=== PATIENT | female | born 1935 | race Caucasian/White ===

== ENCOUNTER 2020-01-19 22:53 | Inpatient (IN) ==
[2020-01-19] MEDS ORDERED: Azithromycin 500 MG in 0.9 % Sodium Chloride 250 ML IVPB ONE (23:16)
[2020-01-19] MEDS ORDERED: cefTRIAXone 1,000 MG in Water for inj. (sterile) 10 ML IVP ONE (23:16)
[2020-01-19] MEDS ORDERED: Isovue-370 500 ML BOTTLE IVP ONE (23:16)
[2020-01-19 23:28] LABS: Basophils % 0.2 %; Hematocrit 37.2 % (35.3-44.9); Hemoglobin 12.2 g/dL (11.5-15.4); Lymphocytes # 0.5 K/mcL (0.6-4.6); Lymphocytes % 2.5 %; Mean Corpuscular HGB Conc 32.8 g/dL (31.6-35.5); Mean Corpuscular Hemoglobin 27.4 pg (28.0-33.3); Mean Corpuscular Volume 83.6 fL (83.0-100.0); Mean Platelet Volume 10.2 fL (9.4-12.4); Monocytes # 0.5 K/mcL (0.0-1.3); Monocytes % 2.9 %; Neutrophils # 17.1 K/mcL (1.6-8.9); Platelet Count 249 K/mcL (140-400); Red Blood Count 4.45 M/mcL (3.82-4.97); Segmented Neutrophils % 93.4 %; White Blood Count 18.3 K/mcL (4.3-11.1)
[2020-01-19 23:38] LABS: INR 1.2
[2020-01-19 23:41] LABS: Activated Partial Thrombo Time 29.8 Seconds (26.0-36.0)
[2020-01-19 23:53] LABS: Albumin 3.5 g/dL (3.5-5.7); Albumin/Globulin Ratio 1.1 (1.1-2.2); Bilirubin,Direct 0.2 mg/dL (0.0-0.2); Bilirubin,Indirect 0.6 mg/dL (0.0-1.0); Bilirubin,Total 0.8 mg/dL (0.3-1.0); Calcium 9.4 mg/dL (8.6-10.3); Globulin 3.2 g/dL (2.4-3.5); Potassium 3.5 mEq/L (3.5-5.1); Total Protein 6.7 g/dL (6.4-8.9); Troponin I 0.03 ng/mL (< 0.04)
[2020-01-20] MEDS ORDERED: 0.9 % Sodium Chloride 1,000 ML IVC ONE (00:20)
[2020-01-20] MEDS ORDERED: Isovue-370 500 ML BOTTLE IVP ONE (00:42)
[2020-01-20 01:13] LABS: Adenovirus Not Detected (Not Detect); Coronavirus 229E Not Detected (Not Detect); Coronavirus HKU1 Not Detected (Not Detect); Coronavirus NL63 Not Detected (Not Detect); Coronavirus OC43 Not Detected (Not Detect)
[2020-01-20 01:14] LABS: Bordetella Pertussis Not Detected (Not Detect); Chlamydophila pneumoniae Not Detected (Not Detect); Human Metapneumovirus Not Detected (Not Detect); Human Rhinovirus/Enterovirus Not Detected (Not Detect); Influenza A Subtype 2009 H1 Not Detected (Not Detect); Influenza B Not Detected (Not Detect); Mycoplasma pneumoniae Not Detected (Not Detect); Parainfluenza Virus 1 Not Detected (Not Detect); Parainfluenza Virus 2 Not Detected (Not Detect); Parainfluenza Virus 3 Not Detected (Not Detect); Parainfluenza Virus 4 Not Detected (Not Detect); Respiratory Syncytial Virus Not Detected (Not Detect)
[2020-01-20] MEDS ORDERED: Naloxone 0.4 MG/ML INJ IVP PRN (03:11)
[2020-01-20] MEDS ORDERED: D5% in Water 1,000 ML IVC PRN (04:41)
[2020-01-20] MEDS ORDERED: *HR* Dextrose 50 % in Water (Vial) 50 ML VIAL IVP PRN (04:41)
[2020-01-20] MEDS ORDERED: Dextrose Gel 15 GM/37.5 ML TUBE PO PRN ×2 (04:41)
[2020-01-20] MEDS ORDERED: Acetaminophen 325 MG TABLET PO PRN (05:07)
[2020-01-20] MEDS ORDERED: *HR* Promethazine 25 MG/ML VIAL IVP PRN (05:07)
[2020-01-20] MEDS: *HR* Heparin 5,000 UNIT/ML VIAL SQ SCH ×3 (05:48→21:13)
[2020-01-20] MEDS: cefTRIAXone 1,000 MG in Water for inj. (sterile) 10 ML IVP SCH (07:57)
[2020-01-20] MEDS: Dexamethasone 4 MG/ML VIAL IVP SCH (07:57)
[2020-01-20] MEDS: Insulin LISPRO 300 UNITS/3 ML VIAL SQ SCH ×3 (07:58→15:42)
[2020-01-20 08:50] LABS: Basophils % 0.1 %; Hematocrit 36.1 % (35.3-44.9); Hemoglobin 11.5 g/dL (11.5-15.4); Immature Granulocytes % 0.9 % (0-4); Lymphocytes # 0.6 K/mcL (0.6-4.6); Lymphocytes % 4.2 %; Mean Corpuscular HGB Conc 31.9 g/dL (31.6-35.5); Mean Corpuscular Hemoglobin 27.3 pg (28.0-33.3); Mean Corpuscular Volume 85.5 fL (83.0-100.0); Mean Platelet Volume 10.1 fL (9.4-12.4); Monocytes # 0.4 K/mcL (0.0-1.3); Monocytes % 2.5 %; Neutrophils # 12.9 K/mcL (1.6-8.9); Platelet Count 240 K/mcL (140-400); Red Blood Count 4.22 M/mcL (3.82-4.97); Red Cell Distribution Width 13.2 % (11.5-14.5); Segmented Neutrophils % 92.3 %
[2020-01-20 09:10] LABS: Albumin 3.3 g/dL (3.5-5.7); Albumin/Globulin Ratio 1.1 (1.1-2.2); Bilirubin,Total 0.5 mg/dL (0.3-1.0); Calcium 9.1 mg/dL (8.6-10.3); Globulin 3.1 g/dL (2.4-3.5); Magnesium 1.5 mg/dL (1.6-2.6); Phosphorous 3.1 mg/dL (2.7-4.5); Potassium 3.3 mEq/L (3.5-5.1); Total Protein 6.4 g/dL (6.4-8.9)
[2020-01-20] MEDS ORDERED: Furosemide 20 MG/2 ML VIAL IVP ONE (10:30)
[2020-01-20] MEDS: Azithromycin 500 MG in 0.9 % Sodium Chloride 250 ML IVPB SCH (17:49)
[2020-01-20] MEDS ORDERED: Insulin LISPRO 300 UNITS/3 ML VIAL SQ SCH (21:00)
[2020-01-21] MEDS: *HR* Heparin 5,000 UNIT/ML VIAL SQ SCH ×3 (05:09→21:02)
[2020-01-21 05:52] LABS: Basophils # 0.1 K/mcL (0.0-0.2); Basophils % 0.2 %; Hematocrit 36.4 % (35.3-44.9); Hemoglobin 11.9 g/dL (11.5-15.4); Immature Granulocytes % 1.5 % (0-4); Lymphocytes # 0.6 K/mcL (0.6-4.6); Lymphocytes % 2.6 %; Mean Corpuscular HGB Conc 32.7 g/dL (31.6-35.5); Mean Corpuscular Hemoglobin 28.2 pg (28.0-33.3); Mean Corpuscular Volume 86.3 fL (83.0-100.0); Mean Platelet Volume 10.5 fL (9.4-12.4); Monocytes # 0.6 K/mcL (0.0-1.3); Monocytes % 2.5 %; Platelet Count 301 K/mcL (140-400); Red Blood Count 4.22 M/mcL (3.82-4.97); Red Cell Distribution Width 13.3 % (11.5-14.5); Segmented Neutrophils % 93.2 %; White Blood Count 22.5 K/mcL (4.3-11.1)
[2020-01-21 06:02] LABS: D-Dimer 1115 ng/mLFEU (0-500)
[2020-01-21 06:03] LABS: Fibrinogen 948 mg/dL (169-393)
[2020-01-21 06:06] LABS: Calcium 9.6 mg/dL (8.6-10.3); Potassium 4.2 mEq/L (3.5-5.1)
[2020-01-21] MEDS: Dexamethasone 4 MG/ML VIAL IVP SCH (08:37)
[2020-01-21] MEDS: Insulin LISPRO 300 UNITS/3 ML VIAL SQ SCH ×4 (08:38→21:01)
[2020-01-21] MEDS: cefTRIAXone 1,000 MG in Water for inj. (sterile) 10 ML IVP SCH (08:40)
[2020-01-21] MEDS ORDERED: Furosemide 40 MG/4 ML VIAL IVP ONE (12:18)
[2020-01-21] MEDS: Piperacillin/Tazobactam 3.375 GM in 0.9 % Sodium Chloride Mini Bag 100 ML IVPB SCH (13:10)
[2020-01-21] MEDS: Azithromycin 500 MG in 0.9 % Sodium Chloride 250 ML IVPB SCH (17:38)
[2020-01-21] MEDS: Insulin DETEMIR 100 UNIT/ML X5UNITS SQ SCH (17:41)
[2020-01-21 18:57] LABS: ABG Base Excess -6 mEq/L (-2 to 3); ABG HCO3 19 mEq/L (21-27); ABG Oxygen Saturation 85 % (95-98); ABG PCO2 36 mmHg (35-45); ABG PH 7.34 pH Units (7.32-7.45); ABG PO2 52 mmHg (85-104); ABG TCO2 20 mEq/L (20-26)
[2020-01-21] MEDS ORDERED: Gabapentin 400 MG CAPSULE PO SCH (21:00)
[2020-01-21] MEDS ORDERED: Insulin DETEMIR 100 UNIT/ML X5UNITS SQ SCH (21:00)
[2020-01-22 01:31] LABS: Basophils # 0.1 K/mcL (0.0-0.2); Basophils % 0.5 %; Hematocrit 35.1 % (35.3-44.9); Hemoglobin 11.2 g/dL (11.5-15.4); Immature Granulocytes % 3.6 % (0-4); Lymphocytes # 0.7 K/mcL (0.6-4.6); Lymphocytes % 3.4 %; Mean Corpuscular HGB Conc 31.9 g/dL (31.6-35.5); Mean Corpuscular Hemoglobin 27.3 pg (28.0-33.3); Mean Corpuscular Volume 85.4 fL (83.0-100.0); Mean Platelet Volume 10.4 fL (9.4-12.4); Monocytes # 1.1 K/mcL (0.0-1.3); Monocytes % 5.2 %; Neutrophils # 18.7 K/mcL (1.6-8.9); Platelet Count 361 K/mcL (140-400); Red Blood Count 4.11 M/mcL (3.82-4.97); Red Cell Distribution Width 13.2 % (11.5-14.5); Segmented Neutrophils % 87.3 %; White Blood Count 21.4 K/mcL (4.3-11.1)
[2020-01-22 01:38] LABS: D-Dimer 988 ng/mLFEU (0-500)
[2020-01-22 01:40] LABS: Fibrinogen 816 mg/dL (169-393)
[2020-01-22 01:51] LABS: Albumin 3.2 g/dL (3.5-5.7); Bilirubin,Indirect 0.3 mg/dL (0.0-1.0); Bilirubin,Total 0.3 mg/dL (0.3-1.0); Calcium 9.3 mg/dL (8.6-10.3); Globulin 3.2 g/dL (2.4-3.5); Potassium 4.1 mEq/L (3.5-5.1); Total Protein 6.4 g/dL (6.4-8.9)
[2020-01-22] MEDS: Piperacillin/Tazobactam 3.375 GM in 0.9 % Sodium Chloride Mini Bag 100 ML IVPB SCH ×4 (04:35→23:49)
[2020-01-22] MEDS: *HR* Heparin 5,000 UNIT/ML VIAL SQ SCH ×3 (04:36→21:10)
[2020-01-22 07:54] LABS: ABG Base Excess -2 mEq/L (-2 to 3); ABG HCO3 24 mEq/L (21-27); ABG Oxygen Saturation 94 % (95-98); ABG PCO2 44 mmHg (35-45); ABG PH 7.35 pH Units (7.32-7.45); ABG PO2 74 mmHg (85-104); ABG TCO2 26 mEq/L (20-26)
[2020-01-22] MEDS ORDERED: 0.9 % Sodium Chloride 1,000 ML IVC SCH (08:15)
[2020-01-22] MEDS: Cholecalciferol (D-3) 1,000 UNIT (25MCG) TABLET PO SCH (08:37)
[2020-01-22] MEDS: Insulin LISPRO 300 UNITS/3 ML VIAL SQ SCH ×4 (08:38→21:08)
[2020-01-22] MEDS: Aspirin Enteric Coated 81 MG Tablet PO SCH (08:38)
[2020-01-22] MEDS: Dexamethasone 4 MG/ML VIAL IVP SCH (08:46)
[2020-01-22] MEDS ORDERED: atenoloL 50 MG TABLET PO SCH (09:00)
[2020-01-22] MEDS ORDERED: amLODIPine 5 MG TABLET PO SCH (09:00)
[2020-01-22] MEDS ORDERED: Gabapentin 100 MG CAPSULE PO SCH (21:00)
[2020-01-22] MEDS: Insulin DETEMIR 100 UNIT/ML X5UNITS SQ SCH (21:09)
[2020-01-23 02:30] LABS: Hematocrit 36.9 % (35.3-44.9); Hemoglobin 12.1 g/dL (11.5-15.4); Mean Corpuscular HGB Conc 32.8 g/dL (31.6-35.5); Mean Corpuscular Hemoglobin 28.3 pg (28.0-33.3); Mean Corpuscular Volume 86.2 fL (83.0-100.0); Mean Platelet Volume 9.9 fL (9.4-12.4); Platelet Count 368 K/mcL (140-400); Red Blood Count 4.28 M/mcL (3.82-4.97); Red Cell Distribution Width 13.1 % (11.5-14.5); White Blood Count 17.5 K/mcL (4.3-11.1)
[2020-01-23 02:37] LABS: Fibrinogen 693 mg/dL (169-393)
[2020-01-23 02:39] LABS: D-Dimer 1444 ng/mLFEU (0-500)
[2020-01-23 02:52] LABS: Calcium 9.8 mg/dL (8.6-10.3); Potassium 4.4 mEq/L (3.5-5.1)
[2020-01-23 03:12] LABS: Lymphocytes # 0.4 K/mcL (0.6-4.6); Monocytes # 0.4 K/mcL (0.0-1.3); Neutrophils # 16.5 K/mcL (1.6-8.9); Platelet Estimate Normal (Normal)
[2020-01-23] MEDS: *HR* Heparin 5,000 UNIT/ML VIAL SQ SCH ×3 (06:11→20:35)
[2020-01-23] MEDS: Dexamethasone 4 MG/ML VIAL IVP SCH (08:51)
[2020-01-23] MEDS: Aspirin Enteric Coated 81 MG Tablet PO SCH (08:51)
[2020-01-23] MEDS: Cholecalciferol (D-3) 1,000 UNIT (25MCG) TABLET PO SCH (08:51)
[2020-01-23] MEDS: Piperacillin/Tazobactam 3.375 GM in 0.9 % Sodium Chloride Mini Bag 100 ML IVPB SCH ×2 (08:52→16:34)
[2020-01-23] MEDS: Insulin LISPRO 300 UNITS/3 ML VIAL SQ SCH ×4 (08:53→20:33)
[2020-01-23] MEDS: Insulin DETEMIR 100 UNIT/ML X5UNITS SQ SCH (20:34)
[2020-01-24] MEDS: Piperacillin/Tazobactam 3.375 GM in 0.9 % Sodium Chloride Mini Bag 100 ML IVPB SCH ×4 (00:01→20:38)
[2020-01-24 02:47] LABS: Hematocrit 37.4 % (35.3-44.9); Mean Corpuscular HGB Conc 32.1 g/dL (31.6-35.5); Mean Corpuscular Hemoglobin 27.6 pg (28.0-33.3); Mean Platelet Volume 10.2 fL (9.4-12.4); Platelet Count 382 K/mcL (140-400); Red Blood Count 4.35 M/mcL (3.82-4.97); Red Cell Distribution Width 13.1 % (11.5-14.5); White Blood Count 17.2 K/mcL (4.3-11.1)
[2020-01-24 03:05] LABS: Albumin 3.1 g/dL (3.5-5.7); Bilirubin,Direct 0.1 mg/dL (0.0-0.2); Bilirubin,Indirect 0.3 mg/dL (0.0-1.0); Bilirubin,Total 0.4 mg/dL (0.3-1.0); Calcium 9.7 mg/dL (8.6-10.3); Globulin 3.2 g/dL (2.4-3.5); Potassium 3.9 mEq/L (3.5-5.1); Total Protein 6.3 g/dL (6.4-8.9)
[2020-01-24 03:14] LABS: Monocytes # 0.3 K/mcL (0.0-1.3); Neutrophils # 15.8 K/mcL (1.6-8.9); Smudge Cells Present (Not Present)
[2020-01-24 03:15] LABS: Platelet Estimate Normal (Normal)
[2020-01-24] MEDS: *HR* Heparin 5,000 UNIT/ML VIAL SQ SCH ×3 (05:31→20:14)
[2020-01-24] MEDS: Cholecalciferol (D-3) 1,000 UNIT (25MCG) TABLET PO SCH (08:51)
[2020-01-24] MEDS: Dexamethasone 4 MG/ML VIAL IVP SCH (08:51)
[2020-01-24] MEDS: Aspirin Enteric Coated 81 MG Tablet PO SCH (08:51)
[2020-01-24] MEDS: Insulin LISPRO 300 UNITS/3 ML VIAL SQ SCH ×6 (08:52→20:08)
[2020-01-24] MEDS: Insulin DETEMIR 100 UNIT/ML X5UNITS SQ SCH ×2 (11:39→20:08)
[2020-01-24] MEDS: amLODIPine 5 MG TABLET PO SCH (11:41)
[2020-01-24] MEDS ORDERED: Remdesivir 200 MG in 0.9 % Sodium Chloride 210 ML IVPB ONE (17:00)
[2020-01-25] MEDS ORDERED: 0.9 % Sodium Chloride 250 ML ONE ×2 (00:37→16:06)
[2020-01-25] MEDS: Piperacillin/Tazobactam 3.375 GM in 0.9 % Sodium Chloride Mini Bag 100 ML IVPB SCH ×3 (05:07→20:18)
[2020-01-25] MEDS: *HR* Heparin 5,000 UNIT/ML VIAL SQ SCH ×3 (05:08→20:17)
[2020-01-25] MEDS: Insulin LISPRO 300 UNITS/3 ML VIAL SQ SCH ×4 (08:11→20:51)
[2020-01-25] MEDS: Insulin DETEMIR 100 UNIT/ML X5UNITS SQ SCH ×2 (08:20→13:00)
[2020-01-25] MEDS: Dexamethasone 4 MG/ML VIAL IVP SCH (08:22)
[2020-01-25] MEDS: Aspirin Enteric Coated 81 MG Tablet PO SCH (08:23)
[2020-01-25] MEDS: amLODIPine 5 MG TABLET PO SCH (08:23)
[2020-01-25] MEDS: Cholecalciferol (D-3) 1,000 UNIT (25MCG) TABLET PO SCH (08:23)
[2020-01-25 09:48] LABS: Hematocrit 37.5 % (35.3-44.9); Hemoglobin 12.1 g/dL (11.5-15.4); Mean Corpuscular HGB Conc 32.3 g/dL (31.6-35.5); Mean Corpuscular Hemoglobin 27.1 pg (28.0-33.3); Mean Corpuscular Volume 84.1 fL (83.0-100.0); Mean Platelet Volume 10.1 fL (9.4-12.4); Nucleated Red Blood Cells 0.1 /100 WBC (0); Platelet Count 404 K/mcL (140-400); Red Blood Count 4.46 M/mcL (3.82-4.97); Red Cell Distribution Width 13.1 % (11.5-14.5); White Blood Count 21.3 K/mcL (4.3-11.1)
[2020-01-25 09:58] LABS: INR 1.1
[2020-01-25 10:08] LABS: Alanine Aminotransferase 9 Units/L (7-52); Albumin 3.2 g/dL (3.5-5.7); Alkaline Phosphatase 88 Units/L (34-104); Aspartate Amino Transferase 21 Units/L (13-39); BUN/Creatinine Ratio 44 (6-26); Bilirubin,Total 0.6 mg/dL (0.3-1.0); Blood Urea Nitrogen 43 mg/dL (8-23); Calcium 10.1 mg/dL (8.6-10.3); Carbon Dioxide 25 mEq/L (23-29); Chloride 106 mEq/L (98-107); Globulin 3.2 g/dL (2.4-3.5); Glucose 102 mg/dL (70-105); Osmolality,Calculated 305 (280-300); Potassium 3.4 mEq/L (3.5-5.1); Sodium 142 mEq/L (136-145); Total Protein 6.4 g/dL (6.4-8.9); eGFR For African Americans > 60 (> 60); eGFR For Non-African Americans 55 (> 60)
[2020-01-25 10:10] LABS: Albumin 3.3 g/dL (3.5-5.7); Bilirubin,Direct 0.1 mg/dL (0.0-0.2); Bilirubin,Indirect 0.5 mg/dL (0.0-1.0); Bilirubin,Total 0.6 mg/dL (0.3-1.0); Globulin 3.2 g/dL (2.4-3.5); Total Protein 6.5 g/dL (6.4-8.9)
[2020-01-25 10:12] LABS: BUN/Creatinine Ratio 46 (6-26); Blood Urea Nitrogen 43 mg/dL (8-23); Calcium 10.2 mg/dL (8.6-10.3); Carbon Dioxide 24 mEq/L (23-29); Chloride 107 mEq/L (98-107); Glucose 100 mg/dL (70-105); Osmolality,Calculated 305 (280-300); Potassium 3.4 mEq/L (3.5-5.1); Sodium 142 mEq/L (136-145); eGFR For African Americans > 60 (> 60); eGFR For Non-African Americans 58 (> 60)
[2020-01-25 10:21] LABS: Lymphocytes # 1.1 K/mcL (0.6-4.6); Monocytes # 0.2 K/mcL (0.0-1.3); Neutrophils # 19.4 K/mcL (1.6-8.9)
[2020-01-25 10:22] LABS: Platelet Estimate Normal (Normal)
[2020-01-25] MEDS ORDERED: Furosemide 40 MG/4 ML VIAL IVP ONE (10:39)
[2020-01-25] MEDS ORDERED: *HR* Midazolam HCl 5 MG/5 ML VIAL IVP ONE (16:17)
[2020-01-25] MEDS ORDERED: *HR* Etomidate 20 MG/10 ML AMPUL IVP ONE (16:17)
[2020-01-25] MEDS ORDERED: Remdesivir 100 MG in 0.9 % Sodium Chloride 230 ML IVPB SCH (17:00)
[2020-01-25] MEDS ORDERED: Insulin DETEMIR 100 UNIT/ML X5UNITS SQ SCH (21:00)
[2020-01-25] MEDS ORDERED: 0.9 % Sodium Chloride 1,000 ML IVC ONE (22:52)
[2020-01-25] MEDS ORDERED: 0.9 % Sodium Chloride 1,000 ML ONE (22:52)
[2020-01-25] MEDS: FentaNYL (PF) 1,000 MCG/100 ML IV.SOLN IVC SCH (23:46)
[2020-01-26] MEDS: Cisatracurium 200 MG in 0.9 % Sodium Chloride 180 ML IVC SCH ×2 (01:00→15:10)
[2020-01-26 03:51] LABS: ABG Base Excess 1 mEq/L (-2 to 3); ABG HCO3 27 mEq/L (21-27); ABG Oxygen Saturation 86 % (95-98); ABG PCO2 52 mmHg (35-45); ABG PH 7.33 pH Units (7.32-7.45); ABG PO2 56 mmHg (85-104); ABG TCO2 29 mEq/L (20-26); Blood Gas Modality ASSIST CONTROL; Blood Gas VT 450 cc
[2020-01-26] MEDS: Piperacillin/Tazobactam 3.375 GM in 0.9 % Sodium Chloride Mini Bag 100 ML IVPB SCH ×3 (04:18→19:31)
[2020-01-26 04:46] LABS: VBG Ionized Calcium 1.24 mmol/L (1.15-1.35)
[2020-01-26 04:56] LABS: Basophils # 0.1 K/mcL (0.0-0.2); Basophils % 0.4 %; Eosinophils # 0.1 K/mcL (0.0-0.6); Eosinophils % 0.5 %; Hematocrit 35.6 % (35.3-44.9); Hemoglobin 11.1 g/dL (11.5-15.4); Immature Granulocytes % 6.5 % (0-4); Lymphocytes # 0.5 K/mcL (0.6-4.6); Lymphocytes % 2.5 %; Mean Corpuscular HGB Conc 31.2 g/dL (31.6-35.5); Mean Corpuscular Hemoglobin 27.4 pg (28.0-33.3); Mean Corpuscular Volume 87.9 fL (83.0-100.0); Mean Platelet Volume 10.1 fL (9.4-12.4); Monocytes # 0.3 K/mcL (0.0-1.3); Monocytes % 1.4 %; Neutrophils # 19.1 K/mcL (1.6-8.9); Nucleated Red Blood Cells 0.1 /100 WBC (0); Platelet Count 363 K/mcL (140-400); Red Blood Count 4.05 M/mcL (3.82-4.97); Red Cell Distribution Width 13.8 % (11.5-14.5); Segmented Neutrophils % 88.7 %; White Blood Count 21.5 K/mcL (4.3-11.1)
[2020-01-26 04:58] LABS: INR 1.4; Prothrombin Time 16.4 Seconds (9.4-12.1)
[2020-01-26 05:05] LABS: Albumin 2.9 g/dL (3.5-5.7); Bilirubin,Total 0.6 mg/dL (0.3-1.0); Calcium 9.3 mg/dL (8.6-10.3); Globulin 2.9 g/dL (2.4-3.5); Potassium 3.6 mEq/L (3.5-5.1); Total Protein 5.8 g/dL (6.4-8.9)
[2020-01-26 05:18] LABS: Large Platelets Present (Not Present); Platelet Estimate Normal (Normal)
[2020-01-26] MEDS: *HR* Heparin 5,000 UNIT/ML VIAL SQ SCH ×3 (05:45→20:18)
[2020-01-26] MEDS: Norepinephrine 4 MG/254 ML IV.SOLN IVC SCH ×2 (05:45→23:23)
[2020-01-26 07:16] LABS: Magnesium 1.5 mg/dL (1.6-2.6); Phosphorous 4.7 mg/dL (2.7-4.5)
[2020-01-26] MEDS: FentaNYL (PF) 1,000 MCG/100 ML IV.SOLN IVC SCH ×2 (07:51→19:30)
[2020-01-26] MEDS: Cholecalciferol (D-3) 1,000 UNIT (25MCG) TABLET PO SCH (08:04)
[2020-01-26] MEDS: Dexamethasone 4 MG/ML VIAL IVP SCH (08:04)
[2020-01-26] MEDS: Aspirin Enteric Coated 81 MG Tablet PO SCH (08:04)
[2020-01-26 08:38] LABS: ABG Base Excess -3 mEq/L (-2 to 3); ABG HCO3 26 mEq/L (21-27); ABG Oxygen Saturation 88 % (95-98); ABG PCO2 60 mmHg (35-45); ABG PH 7.24 pH Units (7.32-7.45); ABG PO2 65 mmHg (85-104); ABG TCO2 28 mEq/L (20-26); Blood Gas Modality ASSIST CONTROL; Blood Gas VT 450 cc
[2020-01-26] MEDS: Chlorhexidine Rinse 15 ML MOUTHWASH MM SCH ×2 (11:00→19:31)
[2020-01-26] MEDS: Insulin LISPRO 300 UNITS/3 ML VIAL SQ SCH ×5 (11:05→23:24)
[2020-01-26] MEDS: Insulin DETEMIR 100 UNIT/ML X5UNITS SQ SCH ×2 (11:05→20:17)
[2020-01-26] MEDS: amLODIPine 5 MG TABLET PO SCH (11:06)
[2020-01-26] MEDS ORDERED: Calcium Gluconate 1gm/50mL 1 GM/50 ML BAG IVPB PRN (11:35)
[2020-01-26] MEDS ORDERED: Potassium Phosphate 44 MEQ in 0.9 % Sodium Chloride 250 ML IVPB PRN (11:35)
[2020-01-26] MEDS ORDERED: Potassium Chloride 40 MEQ/200 ML BAG IVPB PRN (11:35)
[2020-01-26] MEDS ORDERED: 0.9 % Sodium Chloride 250 ML ONE (12:16)
[2020-01-26 14:26] LABS: ABG Base Excess -3 mEq/L (-2 to 3); ABG HCO3 26 mEq/L (21-27); ABG Oxygen Saturation 92 % (95-98); ABG PCO2 63 mmHg (35-45); ABG PH 7.22 pH Units (7.32-7.45); ABG PO2 78 mmHg (85-104); ABG TCO2 28 mEq/L (20-26); Blood Gas Modality ASSIST CONTROL; Blood Gas VT 380 cc
[2020-01-26 15:13] LABS: Basophils # 0.2 K/mcL (0.0-0.2); Basophils % 0.8 %; Eosinophils % 0.1 %; Hematocrit 35.2 % (35.3-44.9); Hemoglobin 10.6 g/dL (11.5-15.4); Immature Granulocytes % 7.8 % (0-4); Lymphocytes # 0.3 K/mcL (0.6-4.6); Lymphocytes % 1.2 %; Mean Corpuscular HGB Conc 30.1 g/dL (31.6-35.5); Mean Corpuscular Hemoglobin 27.2 pg (28.0-33.3); Mean Corpuscular Volume 90.3 fL (83.0-100.0); Mean Platelet Volume 9.9 fL (9.4-12.4); Monocytes # 0.4 K/mcL (0.0-1.3); Monocytes % 1.5 %; Nucleated Red Blood Cells 0.1 /100 WBC (0); Platelet Count 372 K/mcL (140-400); Red Cell Distribution Width 14.4 % (11.5-14.5); Segmented Neutrophils % 88.6 %; White Blood Count 24.6 K/mcL (4.3-11.1)
[2020-01-26 15:15] LABS: Neutrophils # 21.8 K/mcL (1.6-8.9)
[2020-01-26 15:32] LABS: VBG Ionized Calcium 1.15 mmol/L (1.15-1.35)
[2020-01-26 15:36] LABS: Anisocytosis 1+ (Not Present); Platelet Estimate Normal (Normal)
[2020-01-26 15:38] LABS: Calcium 9.2 mg/dL (8.6-10.3); Potassium 4.6 mEq/L (3.5-5.1)
[2020-01-26 21:59] LABS: ABG Base Excess -4 mEq/L (-2 to 3); ABG HCO3 24 mEq/L (21-27); ABG Oxygen Saturation 96 % (95-98); ABG PCO2 57 mmHg (35-45); ABG PH 7.24 pH Units (7.32-7.45); ABG PO2 100 mmHg (85-104); ABG TCO2 26 mEq/L (20-26); Blood Gas Modality ASSIST CONTROL; Blood Gas VT 380 cc
[2020-01-26] MEDS: Artificial Tears SOLN 15 ML BOTTLE BOTH EYES SCH (23:23)
[2020-01-27] MEDS: Cisatracurium 200 MG in 0.9 % Sodium Chloride 180 ML IVC SCH ×2 (01:58→16:00)
[2020-01-27] MEDS: Insulin LISPRO 300 UNITS/3 ML VIAL SQ SCH ×5 (03:40→20:09)
[2020-01-27] MEDS: Artificial Tears SOLN 15 ML BOTTLE BOTH EYES SCH ×5 (03:41→20:10)
[2020-01-27] MEDS: Piperacillin/Tazobactam 3.375 GM in 0.9 % Sodium Chloride Mini Bag 100 ML IVPB SCH ×2 (03:43→12:40)
[2020-01-27 03:49] LABS: VBG Ionized Calcium 1.13 mmol/L (1.15-1.35)
[2020-01-27 03:52] LABS: INR 1.4; Prothrombin Time 15.6 Seconds (9.4-12.1)
[2020-01-27 03:53] LABS: Basophils # 0.1 K/mcL (0.0-0.2); Basophils % 0.6 %; Eosinophils % 0.1 %; Hemoglobin 10.1 g/dL (11.5-15.4); Lymphocytes # 0.3 K/mcL (0.6-4.6); Lymphocytes % 1.4 %; Mean Corpuscular HGB Conc 30.6 g/dL (31.6-35.5); Mean Corpuscular Hemoglobin 27.5 pg (28.0-33.3); Mean Corpuscular Volume 89.9 fL (83.0-100.0); Monocytes # 0.5 K/mcL (0.0-1.3); Monocytes % 2.3 %; Platelet Count 374 K/mcL (140-400); Red Blood Count 3.67 M/mcL (3.82-4.97); Red Cell Distribution Width 14.4 % (11.5-14.5); Segmented Neutrophils % 89.6 %; White Blood Count 20.4 K/mcL (4.3-11.1)
[2020-01-27 04:05] LABS: Magnesium 2.4 mg/dL (1.6-2.6); Neutrophils # 18.3 K/mcL (1.6-8.9); Phosphorous 7.6 mg/dL (2.7-4.5)
[2020-01-27 04:06] LABS: Albumin 2.9 g/dL (3.5-5.7); Bilirubin,Total 0.4 mg/dL (0.3-1.0); Potassium 4.2 mEq/L (3.5-5.1); Total Protein 5.9 g/dL (6.4-8.9)
[2020-01-27 04:16] LABS: ABG Base Excess -3 mEq/L (-2 to 3); ABG HCO3 25 mEq/L (21-27); ABG Oxygen Saturation 98 % (95-98); ABG PCO2 57 mmHg (35-45); ABG PH 7.25 pH Units (7.32-7.45); ABG PO2 117 mmHg (85-104); ABG TCO2 26 mEq/L (20-26); Blood Gas Modality ASSIST CONTROL; Blood Gas VT 380 cc
[2020-01-27 04:53] LABS: Anisocytosis 1+ (Not Present); Platelet Estimate Normal (Normal)
[2020-01-27] MEDS: *HR* Heparin 5,000 UNIT/ML VIAL SQ SCH ×2 (05:18→18:03)
[2020-01-27 05:32] LABS: Hematocrit 33.4 % (35.3-44.9); Hemoglobin 10.2 g/dL (11.5-15.4); Mean Corpuscular HGB Conc 30.5 g/dL (31.6-35.5); Mean Corpuscular Hemoglobin 27.3 pg (28.0-33.3); Mean Corpuscular Volume 89.3 fL (83.0-100.0); Mean Platelet Volume 9.9 fL (9.4-12.4); Platelet Count 386 K/mcL (140-400); Red Blood Count 3.74 M/mcL (3.82-4.97); Red Cell Distribution Width 14.3 % (11.5-14.5)
[2020-01-27] MEDS: FentaNYL (PF) 1,000 MCG/100 ML IV.SOLN IVC SCH ×3 (06:07→23:00)
[2020-01-27] MEDS: Dexamethasone 4 MG/ML VIAL IVP SCH (08:02)
[2020-01-27] MEDS: Chlorhexidine Rinse 15 ML MOUTHWASH MM SCH ×2 (08:02→20:09)
[2020-01-27] MEDS: Cholecalciferol (D-3) 1,000 UNIT (25MCG) TABLET PO SCH (08:02)
[2020-01-27] MEDS: Aspirin Enteric Coated 81 MG Tablet PO SCH (08:02)
[2020-01-27] MEDS: amLODIPine 5 MG TABLET PO SCH (08:02)
[2020-01-27] MEDS: Insulin DETEMIR 100 UNIT/ML X5UNITS SQ SCH ×2 (08:04→20:09)
[2020-01-27] MEDS ORDERED: *HR* Heparin 5,000 UNIT/ML VIAL IVP PRN ×2 (10:34)
[2020-01-27] MEDS ORDERED: *HR* Heparin 5,000 UNIT/ML VIAL IVP ONE (10:34)
[2020-01-27 11:51] LABS: Calcium 8.9 mg/dL (8.6-10.3); Potassium 4.7 mEq/L (3.5-5.1)
[2020-01-27] MEDS: Heparin 25,000UNIT/250ML 1/2NS 25,000 UNIT/250 ML IV.SOLN IVC SCH (12:36)
[2020-01-27] MEDS: Pantoprazole 40 MG VIAL IVP SCH ×2 (12:40→18:03)
[2020-01-27] MEDS ORDERED: Calcium Gluconate 1gm/50mL 1 GM/50 ML BAG IVPB PRN ×2 (12:57)
[2020-01-27] MEDS: Calcium Chloride 4,000 MG in 0.9 % Sodium Chloride 1,000 ML CRRT SCH (14:31)
[2020-01-27] MEDS ORDERED: 0.9 % Sodium Chloride 250 ML ONE (14:56)
[2020-01-27] MEDS: PrismaSATE BGK 4/2.5 5,000 ML CRRT SCH ×4 (15:00→19:30)
[2020-01-27 17:26] LABS: VBG Ionized Calcium 1.05 mmol/L (1.15-1.35)
[2020-01-27 20:25] LABS: VBG Ionized Calcium 1.11 mmol/L (1.15-1.35)
[2020-01-27 22:36] LABS: ABG Base Excess -3 mEq/L (-2 to 3); ABG HCO3 24 mEq/L (21-27); ABG Oxygen Saturation 89 % (95-98); ABG PCO2 55 mmHg (35-45); ABG PH 7.25 pH Units (7.32-7.45); ABG PO2 68 mmHg (85-104); ABG TCO2 26 mEq/L (20-26); Blood Gas Modality ASSIST CONTROL; Blood Gas VT 380 cc
[2020-01-28] MEDS: Insulin LISPRO 300 UNITS/3 ML VIAL SQ SCH ×6 (00:11→20:16)
[2020-01-28] MEDS: Piperacillin/Tazobactam 3.375 GM in 0.9 % Sodium Chloride Mini Bag 100 ML IVPB SCH ×3 (00:58→19:32)
[2020-01-28] MEDS: PrismaSATE BGK 4/2.5 5,000 ML CRRT SCH ×10 (01:24→20:00)
[2020-01-28 02:11] LABS: VBG Ionized Calcium 1.12 mmol/L (1.15-1.35)
[2020-01-28] MEDS: Artificial Tears SOLN 15 ML BOTTLE BOTH EYES SCH ×5 (04:00→19:31)
[2020-01-28 04:45] LABS: Hematocrit 28.5 % (35.3-44.9); Hemoglobin 8.7 g/dL (11.5-15.4); Mean Corpuscular HGB Conc 30.5 g/dL (31.6-35.5); Mean Corpuscular Hemoglobin 27.9 pg (28.0-33.3); Mean Corpuscular Volume 91.3 fL (83.0-100.0); Mean Platelet Volume 10.1 fL (9.4-12.4); Nucleated Red Blood Cells 0.2 /100 WBC (0); Platelet Count 255 K/mcL (140-400); Red Blood Count 3.12 M/mcL (3.82-4.97); Red Cell Distribution Width 14.5 % (11.5-14.5); White Blood Count 15.8 K/mcL (4.3-11.1)
[2020-01-28 04:46] LABS: VBG Ionized Calcium 1.13 mmol/L (1.15-1.35)
[2020-01-28 04:50] LABS: INR 1.2; Prothrombin Time 13.8 Seconds (9.4-12.1)
[2020-01-28 04:58] LABS: Albumin 2.5 g/dL (3.5-5.7); Albumin/Globulin Ratio 0.9 (1.1-2.2); Bilirubin,Total 0.4 mg/dL (0.3-1.0); Calcium 8.9 mg/dL (8.6-10.3); Globulin 2.7 g/dL (2.4-3.5); Potassium 4.3 mEq/L (3.5-5.1); Total Protein 5.2 g/dL (6.4-8.9)
[2020-01-28] MEDS: *HR* Heparin 5,000 UNIT/ML VIAL SQ SCH (05:27)
[2020-01-28] MEDS: Pantoprazole 40 MG VIAL IVP SCH ×2 (05:27→17:06)
[2020-01-28 05:36] LABS: Anisocytosis 1+ (Not Present); Lymphocytes # 0.3 K/mcL (0.6-4.6); Neutrophils # 15.5 K/mcL (1.6-8.9); Platelet Estimate Normal (Normal)
[2020-01-28 05:37] LABS: Poikilocytosis 1+ (Not Present)
[2020-01-28] MEDS: Norepinephrine 4 MG/254 ML IV.SOLN IVC SCH (07:13)
[2020-01-28] MEDS: FentaNYL (PF) 1,000 MCG/100 ML IV.SOLN IVC SCH ×3 (07:14→22:26)
[2020-01-28] MEDS: Cisatracurium 200 MG in 0.9 % Sodium Chloride 180 ML IVC SCH (07:14)
[2020-01-28] MEDS: Heparin 25,000UNIT/250ML 1/2NS 25,000 UNIT/250 ML IV.SOLN IVC SCH (07:15)
[2020-01-28] MEDS: Aspirin 81 MG TAB.CHEW PO SCH (07:21)
[2020-01-28] MEDS: Dexamethasone 4 MG/ML VIAL IVP SCH (07:21)
[2020-01-28] MEDS: Chlorhexidine Rinse 15 ML MOUTHWASH MM SCH ×2 (07:21→19:30)
[2020-01-28] MEDS: Cholecalciferol (D-3) 1,000 UNIT (25MCG) TABLET PO SCH (07:22)
[2020-01-28] MEDS: Insulin DETEMIR 100 UNIT/ML X5UNITS SQ SCH ×2 (07:24→19:33)
[2020-01-28 07:28] LABS: VBG Ionized Calcium 1.14 mmol/L (1.15-1.35)
[2020-01-28] MEDS: Calcium Chloride 4,000 MG in 0.9 % Sodium Chloride 1,000 ML CRRT SCH (09:26)
[2020-01-28 09:30] LABS: Magnesium 2.2 mg/dL (1.6-2.6); Phosphorous 4.6 mg/dL (2.7-4.5)
[2020-01-28 09:52] LABS: ABG Base Excess 1 mEq/L (-2 to 3); ABG HCO3 29 mEq/L (21-27); ABG Oxygen Saturation 84 % (95-98); ABG PCO2 59 mmHg (35-45); ABG PO2 55 mmHg (85-104); ABG TCO2 30 mEq/L (20-26); Blood Gas Modality ASSIST CONTROL; Blood Gas VT 380 cc
[2020-01-28 11:30] LABS: Hematocrit 30.1 % (35.3-44.9); Hemoglobin 9.3 g/dL (11.5-15.4)
[2020-01-28] MEDS ORDERED: Piperacillin/Tazobactam 3.375 GM in 0.9 % Sodium Chloride Mini Bag 100 ML IVPB SCH (16:00)
[2020-01-28 17:51] LABS: Hematocrit 30.9 % (35.3-44.9); Hemoglobin 9.5 g/dL (11.5-15.4)
[2020-01-28] MEDS ORDERED: *HR* Heparin 5,000 UNIT/ML VIAL ONE (22:28)
[2020-01-28] MEDS ORDERED: 0.9 % Sodium Chloride 250 ML ONE (22:53)
[2020-01-28] MEDS: *HR* Heparin 5,000 UNIT/ML VIAL CRRT PRN (23:30)
[2020-01-29] MEDS: Insulin LISPRO 300 UNITS/3 ML VIAL SQ SCH ×7 (00:26→23:51)
[2020-01-29 00:39] LABS: Hematocrit 29.3 % (35.3-44.9); Hemoglobin 8.8 g/dL (11.5-15.4)
[2020-01-29] MEDS: PrismaSATE BGK 4/2.5 5,000 ML CRRT SCH ×6 (01:30→20:40)
[2020-01-29] MEDS: Cisatracurium 200 MG in 0.9 % Sodium Chloride 180 ML IVC SCH ×2 (01:55→12:39)
[2020-01-29 04:14] LABS: Hematocrit 30.6 % (35.3-44.9); Hemoglobin 9.5 g/dL (11.5-15.4); Mean Corpuscular Hemoglobin 28.3 pg (28.0-33.3); Mean Corpuscular Volume 91.1 fL (83.0-100.0); Mean Platelet Volume 10.3 fL (9.4-12.4); Platelet Count 272 K/mcL (140-400); Red Blood Count 3.36 M/mcL (3.82-4.97); Red Cell Distribution Width 14.6 % (11.5-14.5); White Blood Count 22.1 K/mcL (4.3-11.1)
[2020-01-29 04:16] LABS: INR 1.1; Prothrombin Time 12.4 Seconds (9.4-12.1)
[2020-01-29 04:31] LABS: ABG Base Excess 0 mEq/L (-2 to 3); ABG HCO3 29 mEq/L (21-27); ABG Oxygen Saturation 91 % (95-98); ABG PCO2 72 mmHg (35-45); ABG PH 7.22 pH Units (7.32-7.45); ABG PO2 75 mmHg (85-104); ABG TCO2 31 mEq/L (20-26); Blood Gas Modality ASSIST CONTROL; Blood Gas VT 380 cc
[2020-01-29 04:31] LABS: Albumin 2.8 g/dL (3.5-5.7); Bilirubin,Total 0.5 mg/dL (0.3-1.0); Calcium 8.3 mg/dL (8.6-10.3); Globulin 2.9 g/dL (2.4-3.5); Potassium 4.4 mEq/L (3.5-5.1); Total Protein 5.7 g/dL (6.4-8.9)
[2020-01-29] MEDS: Piperacillin/Tazobactam 3.375 GM in 0.9 % Sodium Chloride Mini Bag 100 ML IVPB SCH ×3 (04:41→20:17)
[2020-01-29] MEDS ORDERED: *HR* Heparin 5,000 UNIT/ML VIAL ONE (05:40)
[2020-01-29] MEDS: FentaNYL (PF) 1,000 MCG/100 ML IV.SOLN IVC SCH ×3 (06:00→20:00)
[2020-01-29] MEDS: Pantoprazole 40 MG VIAL IVP SCH ×2 (06:18→15:22)
[2020-01-29] MEDS: *HR* Heparin 5,000 UNIT/ML VIAL CRRT PRN (06:20)
[2020-01-29] MEDS ORDERED: *HR* Heparin 5,000 UNIT/ML VIAL IVP PRN ×2 (06:42)
[2020-01-29] MEDS: Norepinephrine 4 MG/254 ML IV.SOLN IVC SCH ×2 (07:26→17:38)
[2020-01-29] MEDS: Heparin 25,000UNIT/250ML 1/2NS 25,000 UNIT/250 ML IV.SOLN IVC SCH (07:37)
[2020-01-29] MEDS: Artificial Tears SOLN 15 ML BOTTLE BOTH EYES SCH ×4 (07:48→20:17)
[2020-01-29] MEDS: Chlorhexidine Rinse 15 ML MOUTHWASH MM SCH ×2 (08:38→20:16)
[2020-01-29] MEDS: Nystatin SUSP 5 ML UD.LIQ PO SCH ×4 (08:38→20:16)
[2020-01-29] MEDS: Dexamethasone 4 MG/ML VIAL IVP SCH (08:38)
[2020-01-29] MEDS: Cholecalciferol (D-3) 1,000 UNIT (25MCG) TABLET PO SCH (08:39)
[2020-01-29] MEDS: Aspirin 81 MG TAB.CHEW PO SCH (08:39)
[2020-01-29] MEDS: Fluconazole 40 MG/ML UDC GTUBE SCH (08:40)
[2020-01-29 08:59] LABS: Hematocrit 28.5 % (35.3-44.9); Hemoglobin 8.8 g/dL (11.5-15.4); Mean Corpuscular HGB Conc 30.9 g/dL (31.6-35.5); Mean Corpuscular Hemoglobin 27.8 pg (28.0-33.3); Mean Corpuscular Volume 89.9 fL (83.0-100.0); Mean Platelet Volume 10.3 fL (9.4-12.4); Platelet Count 258 K/mcL (140-400); Red Blood Count 3.17 M/mcL (3.82-4.97); Red Cell Distribution Width 14.3 % (11.5-14.5); White Blood Count 21.5 K/mcL (4.3-11.1)
[2020-01-29 09:02] LABS: Heparin anti-factor XA UFH 0.52 IU/mL (0.30-0.70); INR 1.1; Prothrombin Time 12.1 Seconds (9.4-12.1)
[2020-01-29] MEDS: Insulin DETEMIR 100 UNIT/ML X5UNITS SQ SCH ×2 (10:12→20:17)
[2020-01-29 11:29] LABS: Blood Gas VT 400 cc; VBG HCO3 28 mEq/L (21-27); VBG PCO2 62 mmHg (41-51); VBG PH 7.26 pH Units (7.32-7.42); VBG PO2 65 mmHg (25-50)
[2020-01-30] MEDS: Cisatracurium 200 MG in 0.9 % Sodium Chloride 180 ML IVC SCH ×2 (00:10→13:27)
[2020-01-30 00:53] LABS: Hemoglobin 9.2 g/dL (11.5-15.4); Mean Platelet Volume 10.5 fL (9.4-12.4); Red Cell Distribution Width 14.6 % (11.5-14.5)
[2020-01-30 00:54] LABS: Hematocrit 29.9 % (35.3-44.9); Mean Corpuscular HGB Conc 30.8 g/dL (31.6-35.5); Mean Corpuscular Volume 91.2 fL (83.0-100.0); Platelet Count 295 K/mcL (140-400); Red Blood Count 3.28 M/mcL (3.82-4.97)
[2020-01-30 00:56] LABS: White Blood Count 31.3 K/mcL (4.3-11.1)
[2020-01-30 01:06] LABS: Albumin 2.8 g/dL (3.5-5.7); Albumin/Globulin Ratio 0.9 (1.1-2.2); Bilirubin,Total 0.5 mg/dL (0.3-1.0); Calcium 8.1 mg/dL (8.6-10.3); Potassium 4.5 mEq/L (3.5-5.1); Total Protein 5.8 g/dL (6.4-8.9)
[2020-01-30] MEDS: PrismaSATE BGK 4/2.5 5,000 ML CRRT SCH ×10 (01:40→21:34)
[2020-01-30 01:47] LABS: Heparin anti-factor XA UFH 0.61 IU/mL (0.30-0.70); INR 1.1; Prothrombin Time 12.3 Seconds (9.4-12.1)
[2020-01-30] MEDS: FentaNYL (PF) 1,000 MCG/100 ML IV.SOLN IVC SCH ×4 (03:00→22:27)
[2020-01-30] MEDS: Insulin LISPRO 300 UNITS/3 ML VIAL SQ SCH ×6 (04:20→23:44)
[2020-01-30 04:22] LABS: ABG Base Excess -3 mEq/L (-2 to 3); ABG HCO3 26 mEq/L (21-27); ABG Oxygen Saturation 94 % (95-98); ABG PCO2 63 mmHg (35-45); ABG PH 7.23 pH Units (7.32-7.45); ABG PO2 85 mmHg (85-104); ABG TCO2 28 mEq/L (20-26); Blood Gas Modality ASSIST CONTROL; Blood Gas VT 400 cc
[2020-01-30] MEDS: Piperacillin/Tazobactam 3.375 GM in 0.9 % Sodium Chloride Mini Bag 100 ML IVPB SCH ×3 (04:22→20:54)
[2020-01-30] MEDS: Heparin 25,000UNIT/250ML 1/2NS 25,000 UNIT/250 ML IV.SOLN IVC SCH ×2 (05:01→15:15)
[2020-01-30] MEDS: Pantoprazole 40 MG VIAL IVP SCH ×2 (05:01→18:11)
[2020-01-30] MEDS: Norepinephrine 4 MG/254 ML IV.SOLN IVC SCH (06:30)
[2020-01-30] MEDS: Nystatin SUSP 5 ML UD.LIQ PO SCH ×4 (07:54→21:02)
[2020-01-30] MEDS: Insulin DETEMIR 100 UNIT/ML X5UNITS SQ SCH ×2 (07:54→21:34)
[2020-01-30] MEDS: Chlorhexidine Rinse 15 ML MOUTHWASH MM SCH ×2 (07:54→21:02)
[2020-01-30] MEDS: Dexamethasone 4 MG/ML VIAL IVP SCH (07:55)
[2020-01-30] MEDS: Aspirin 81 MG TAB.CHEW PO SCH (07:55)
[2020-01-30] MEDS: Artificial Tears SOLN 15 ML BOTTLE BOTH EYES SCH ×4 (07:55→21:02)
[2020-01-30] MEDS: Cholecalciferol (D-3) 1,000 UNIT (25MCG) TABLET PO SCH (07:56)
[2020-01-30] MEDS: Fluconazole 40 MG/ML UDC GTUBE SCH (07:56)
[2020-01-30 08:32] LABS: VBG Ionized Calcium 1.15 mmol/L (1.15-1.35)
[2020-01-30] MEDS ORDERED: Vancomycin 1,500 MG/265 ML IV.SOLN IVPB ONE (08:33)
[2020-01-30] MEDS ORDERED: Vancomycin 1 EACH in 0.9 % Sodium Chloride 250 ML IVPB PRN (09:00)
[2020-01-30 09:01] LABS: Phosphorous 2.8 mg/dL (2.7-4.5)
[2020-01-30] MEDS: Midazolam HCl 50 MG/100 ML IV.SOLN IVC SCH ×3 (10:45→23:21)
[2020-01-30 10:58] LABS: Magnesium 2.4 mg/dL (1.6-2.6)
[2020-01-30] MEDS ORDERED: *HR* Atropine Sulfate 1 MG/10 ML SYRINGE ONE (13:50)
[2020-01-30] MEDS ORDERED: Magnesium Sulfate 1 GM/102 ML PIGGYBACK IVPB ONE (14:38)
[2020-01-30 17:55] LABS: Hematocrit 32.1 % (35.3-44.9); Hemoglobin 9.9 g/dL (11.5-15.4)
[2020-01-30 19:07] LABS: Adenovirus F 40/41 PCR Not detected (Not detect); Astrovirus PCR Not detected (Not detect); C.difficile Toxin A/B Gene PCR Not detected (Not detect); Campylobacter by PCR Not detected (Not detect); Cryptosporidium by PCR Not detected (Not detect); Cyclospora cayetanensis PCR Not detected (Not detect); E. coli O157 by PCR Not detected (Not detect); Entamoeba histolytica PCR Not detected (Not detect); Enteroaggregative E.coli(EAEC) Not detected (Not detect); Enteropathogenic E.coli(EPEC) Not detected (Not detect); Enterotoxigenic E.coli (ETEC) Not detected (Not detect); Giardia lamblia PCR Not detected (Not detect); Norovirus GI/GII PCR Not detected (Not detect); Plesiomonas shigelloides PCR Not detected (Not detect); Rotavirus A PCR Not detected (Not detect); Salmonella PCR Not detected (Not detect); Sapovirus PCR Not detected (Not detect); Shig/EnteroinvasiveE coli EIEC Not detected (Not detect); Shigalike tox-prod E coli STEC Not detected (Not detect); Vibrio PCR Not detected (Not detect); Vibrio cholerae PCR Not detected (Not detect); Yersinia enterocolitica PCR Not detected (Not detect)
[2020-01-30] MEDS: Dexmedetomidine HCl 400 MCG/100 ML MLS IVC SCH (20:55)
[2020-01-30 23:29] LABS: Hematocrit 30.4 % (35.3-44.9); Hemoglobin 9.8 g/dL (11.5-15.4)
[2020-01-30] MEDS ORDERED: *HR* Heparin 5,000 UNIT/ML VIAL ONE (23:38)
[2020-01-31] MEDS: Norepinephrine 4 MG/254 ML IV.SOLN IVC SCH ×4 (02:00→18:01)
[2020-01-31] MEDS: Cisatracurium 200 MG in 0.9 % Sodium Chloride 180 ML IVC SCH ×2 (02:35→14:06)
[2020-01-31] MEDS: Piperacillin/Tazobactam 3.375 GM in 0.9 % Sodium Chloride Mini Bag 100 ML IVPB SCH (03:13)
[2020-01-31] MEDS: PrismaSATE BGK 4/2.5 5,000 ML CRRT SCH ×10 (04:00→22:19)
[2020-01-31] MEDS: Artificial Tears SOLN 15 ML BOTTLE BOTH EYES SCH ×5 (04:00→19:56)
[2020-01-31] MEDS: FentaNYL (PF) 1,000 MCG/100 ML IV.SOLN IVC SCH ×4 (04:00→22:17)
[2020-01-31 04:35] LABS: Prothrombin Time 11.4 Seconds (9.4-12.1)
[2020-01-31 04:36] LABS: Hematocrit 31.2 % (35.3-44.9); Hemoglobin 9.8 g/dL (11.5-15.4); Mean Corpuscular HGB Conc 31.4 g/dL (31.6-35.5); Mean Corpuscular Hemoglobin 28.1 pg (28.0-33.3); Mean Corpuscular Volume 89.4 fL (83.0-100.0); Mean Platelet Volume 10.5 fL (9.4-12.4); Platelet Count 303 K/mcL (140-400); Red Blood Count 3.49 M/mcL (3.82-4.97); Red Cell Distribution Width 14.5 % (11.5-14.5)
[2020-01-31 04:50] LABS: Alanine Aminotransferase 56 Units/L (7-52); Albumin 3.1 g/dL (3.5-5.7); Alkaline Phosphatase 67 Units/L (34-104); Aspartate Amino Transferase 103 Units/L (13-39); BUN/Creatinine Ratio 18 (6-26); Bilirubin,Total 0.8 mg/dL (0.3-1.0); Blood Urea Nitrogen 19 mg/dL (8-23); Calcium 8.6 mg/dL (8.6-10.3); Carbon Dioxide 24 mEq/L (23-29); Chloride 101 mEq/L (98-107); Globulin 3.2 g/dL (2.4-3.5); Glucose 101 mg/dL (70-105); Osmolality,Calculated 282 (280-300); Potassium 4.6 mEq/L (3.5-5.1); Sodium 135 mEq/L (136-145); Total Protein 6.3 g/dL (6.4-8.9); eGFR For African Americans > 60 (> 60); eGFR For Non-African Americans 50 (> 60)
[2020-01-31] MEDS: Insulin LISPRO 300 UNITS/3 ML VIAL SQ SCH ×5 (04:52→19:52)
[2020-01-31 05:14] LABS: White Blood Count 37.6 K/mcL (4.3-11.1)
[2020-01-31] MEDS: Pantoprazole 40 MG VIAL IVP SCH ×2 (05:23→17:06)
[2020-01-31 05:39] LABS: ABG Base Excess -3 mEq/L (-2 to 3); ABG HCO3 25 mEq/L (21-27); ABG Oxygen Saturation 95 % (95-98); ABG PCO2 59 mmHg (35-45); ABG PH 7.23 pH Units (7.32-7.45); ABG PO2 88 mmHg (85-104); ABG TCO2 27 mEq/L (20-26); Blood Gas Modality ASSIST CONTROL; Blood Gas VT 400 cc
[2020-01-31] MEDS: Dexmedetomidine HCl 400 MCG/100 ML MLS IVC SCH (07:08)
[2020-01-31] MEDS: Midazolam HCl 50 MG/100 ML IV.SOLN IVC SCH ×2 (07:11→16:03)
[2020-01-31] MEDS: Cholecalciferol (D-3) 1,000 UNIT (25MCG) TABLET PO SCH (07:15)
[2020-01-31] MEDS: Dexamethasone 4 MG/ML VIAL IVP SCH (07:15)
[2020-01-31] MEDS: Aspirin 81 MG TAB.CHEW PO SCH (07:15)
[2020-01-31] MEDS: Chlorhexidine Rinse 15 ML MOUTHWASH MM SCH ×2 (07:15→19:56)
[2020-01-31] MEDS: Nystatin SUSP 5 ML UD.LIQ PO SCH ×4 (07:15→19:56)
[2020-01-31] MEDS: Fluconazole 40 MG/ML UDC GTUBE SCH (07:16)
[2020-01-31] MEDS: Insulin DETEMIR 100 UNIT/ML X5UNITS SQ SCH ×2 (07:16→19:56)
[2020-01-31] MEDS ORDERED: Meropenem 1,000 MG in Water for inj. (sterile) 20 ML IVP SCH (08:00)
[2020-01-31 11:05] LABS: Hematocrit 31.5 % (35.3-44.9); Hemoglobin 9.6 g/dL (11.5-15.4)
[2020-01-31] MEDS: 0.9 % Sodium Chloride 1,000 ML PRIME SCH ×2 (11:30→11:31)
[2020-01-31] MEDS: *HR* Heparin 5,000 UNIT/ML VIAL SQ SCH ×2 (13:03→22:17)
[2020-01-31] MEDS: Meropenem 1,000 MG in Water for inj. (sterile) 20 ML IVP SCH ×2 (16:02→22:56)
[2020-01-31 16:41] LABS: Hematocrit 31.8 % (35.3-44.9); Hemoglobin 9.7 g/dL (11.5-15.4)
[2020-01-31 23:08] LABS: Hematocrit 31.7 % (35.3-44.9); Hemoglobin 9.5 g/dL (11.5-15.4)
[2020-02-01] MEDS: Insulin LISPRO 300 UNITS/3 ML VIAL SQ SCH ×4 (00:10→12:25)
[2020-02-01] MEDS: Midazolam HCl 50 MG/100 ML IV.SOLN IVC SCH (02:00)
[2020-02-01] MEDS: FentaNYL (PF) 1,000 MCG/100 ML IV.SOLN IVC SCH ×2 (03:07→09:53)
[2020-02-01] MEDS: PrismaSATE BGK 4/2.5 5,000 ML CRRT SCH ×4 (03:20→09:00)
[2020-02-01] MEDS: Norepinephrine 4 MG/254 ML IV.SOLN IVC SCH ×4 (03:52→09:43)
[2020-02-01 04:06] LABS: ABG Base Excess -7 mEq/L (-2 to 3); ABG HCO3 22 mEq/L (21-27); ABG Oxygen Saturation 93 % (95-98); ABG PCO2 58 mmHg (35-45); ABG PH 7.19 pH Units (7.32-7.45); ABG PO2 82 mmHg (85-104); ABG TCO2 24 mEq/L (20-26); Blood Gas Modality ASSIST CONTROL; Blood Gas VT 400 cc
[2020-02-01] MEDS: Cisatracurium 200 MG in 0.9 % Sodium Chloride 180 ML IVC SCH (04:06)
[2020-02-01 04:54] LABS: Hematocrit 30.8 % (35.3-44.9); Hemoglobin 9.5 g/dL (11.5-15.4); Mean Corpuscular HGB Conc 30.8 g/dL (31.6-35.5); Mean Corpuscular Hemoglobin 28.5 pg (28.0-33.3); Mean Corpuscular Volume 92.5 fL (83.0-100.0); Mean Platelet Volume 11.1 fL (9.4-12.4); Nucleated Red Blood Cells 4.7 /100 WBC (0); Platelet Count 323 K/mcL (140-400); Red Blood Count 3.33 M/mcL (3.82-4.97); Red Cell Distribution Width 15.2 % (11.5-14.5)
[2020-02-01 04:58] LABS: INR 1.1; Prothrombin Time 12.8 Seconds (9.4-12.1)
[2020-02-01 05:03] LABS: White Blood Count 57.7 K/mcL (4.3-11.1)
[2020-02-01 05:11] LABS: Albumin 3.2 g/dL (3.5-5.7); Bilirubin,Total 0.8 mg/dL (0.3-1.0); Calcium 8.6 mg/dL (8.6-10.3); Globulin 3.1 g/dL (2.4-3.5); Potassium 4.6 mEq/L (3.5-5.1); Total Protein 6.3 g/dL (6.4-8.9)
[2020-02-01] MEDS ORDERED: Calcium Chloride 2,000 MG in 0.9 % Sodium Chloride 100 ML IVPB ONE (05:15)
[2020-02-01] MEDS ORDERED: Sodium Bicarbonate 50 MEQ/50 ML VIAL IVP ONE (05:20)
[2020-02-01 05:50] LABS: Lymphocytes # 1.2 K/mcL (0.6-4.6); Monocytes # 4.6 K/mcL (0.0-1.3); Neutrophils # 49.6 K/mcL (1.6-8.9); Platelet Estimate Normal (Normal)
[2020-02-01 05:51] LABS: Anisocytosis 1+ (Not Present); Microcytosis Present (Not Present)
[2020-02-01] MEDS: *HR* Heparin 5,000 UNIT/ML VIAL SQ SCH ×2 (06:31→13:24)
[2020-02-01] MEDS: Pantoprazole 40 MG VIAL IVP SCH (06:31)
[2020-02-01] MEDS: Dexmedetomidine HCl 400 MCG/100 ML MLS IVC SCH (07:38)
[2020-02-01] MEDS: Meropenem 1,000 MG in Water for inj. (sterile) 20 ML IVP SCH (07:45)
[2020-02-01] MEDS: Nystatin SUSP 5 ML UD.LIQ PO SCH ×2 (07:46→13:24)
[2020-02-01] MEDS: Aspirin 81 MG TAB.CHEW PO SCH (07:46)
[2020-02-01] MEDS: Insulin DETEMIR 100 UNIT/ML X5UNITS SQ SCH (07:46)
[2020-02-01] MEDS: Chlorhexidine Rinse 15 ML MOUTHWASH MM SCH (07:46)
[2020-02-01] MEDS: Cholecalciferol (D-3) 1,000 UNIT (25MCG) TABLET PO SCH (07:46)
[2020-02-01] MEDS: Fluconazole 40 MG/ML UDC GTUBE SCH (07:47)
[2020-02-01] MEDS: Artificial Tears SOLN 15 ML BOTTLE BOTH EYES SCH ×2 (07:49→12:25)
[2020-02-01] MEDS: Vancomycin Oral Soln 125 MG/2.5 ML UDC PO SCH ×2 (07:51→13:24)
[2020-02-01] MEDS ORDERED: Hydrocortisone Sodium Succ 100 MG/2 ML VIAL IVP SCH (08:00)
[2020-02-01] MEDS ORDERED: MetroNIDAZOLE 500 MG/100 ML 500 MG/100 ML BAG IVPB SCH (08:00)
[2020-02-01] MEDS ORDERED: Vasopressin 40 UNIT in D5% in Water 100 ML IVC SCH (08:45)
[2020-02-01] MEDS ORDERED: *HR* Heparin 5,000 UNIT/ML VIAL ONE (09:56)
[2020-02-01] MEDS ORDERED: Norepinephrine 8 MG in 0.9 % Sodium Chloride 250 ML IVC SCH (11:45)
[2020-02-01 16:21] VITALS: BP 96/39
[2020-02-01] MEDS ORDERED: Meropenem 1,000 MG in Water for inj. (sterile) 20 ML IVP SCH (20:00)
== END 2020-02-01 15:44 | disposition expired | DRG 870 ==
LOC: EMEROOARM 22:53 → 2NENU 22:53 → SUATTDRO 01-20 03:09 → 2NENU 01-20 04:10 → SUATTDRO 01-20 16:09
PROVIDERS: ADMIT Student in an Organized Health Care Education/Training Program; ATTEND Pediatrics